=== PATIENT | female | born 1955 | race Caucasian/White ===

== ENCOUNTER → 2019-09-10 | Outpatient (CLI) | payer OTHER ==
[~2019-09-10] MED LIST: Adult Low Dose81 MG PO; CLIMARA1 EACH TOP; GAVILAX17 GM PO; Hair, Skin & N1 EACH PO; LEVSOD50 PO; LISI20 PO; Pravachol40 MG PO
== END | disposition home or self-care (01) ==
LOC: LAB SHORT 13:14 → PLD 13:14
DX: D04.4 Carcinoma in situ of skin of scalp and neck (principal)
CPT/HCPCS: 88305